=== PATIENT | female | born 1960 | race American Indian/Alaskan Native ===

== ENCOUNTER 2016-06-06 09:46 | Emergency (ER) | payer OTHER ==
--- NOTE | 2016-06-06 10:32 | EDM.PDOC ---
ED HISTORY OF PRESENT ILLNESS - General Chief Complaint: Respiratory Problem Stated Complaint: BY AMBULANCE Time Seen by Provider: 06/06/16 10:30 Source of Information: Reports: Patient, EMS, Old records, RN, RN notes reviewed History Limitations: Reports: No limitations - History of Present Illness INITIAL COMMENTS - FREE TEXT/NARRATIVE: Arrives by ambulance sent from [facility] by Dr. Newton with c/o cough , wheezing, and worsening shortness of breath. Timing/Duration: Reports: Constant, Getting worse Severity: severe Location, General: Reports: chest Improves with: Reports: None Worsens with: Reports: None Associated Symptoms (General): Reports: no other symptoms Treatments SYSTEM TRAINER: Reports: Breathing treatments, Other medication(s) - Related Data Allergies/ADRs: Allergies Allergy/AdvReac Type Severity Reaction Status Date / Time No Known Allergies Allergy Verified 07/22/13 09:28 Home Meds: Home Meds Omeprazole [Omeprazole] 20 mg PO DAILY 05/28/16 [History] Pregabalin [Lyrica] 50 mg PO DAILY 05/28/16 [History] atorvaSTATin [Lipitor] 10 mg PO DAILY 05/28/16 [History] glyBURIDE [Glyburide] 5 mg PO BID 05/28/16 [History] metFORMIN HCl [Metformin HCl] 1,000 mg PO BID 05/28/16 [History] traMADol [Ultram] 50 mg PO ASDIRECTED PRN 05/28/16 [History] Albuterol/Ipratropium [DuoNeb 3.0-0.5 MG/3 ML] 3 ml NEB ASDIRECTED PRN 06/06/16 [History] Amoxicillin 500 mg PO BID 06/06/16 [History] Codeine/Promethazine [Phenergan with Codeine] 5 ml PO ASDIRECTED PRN 06/06/16 [ History] Past Medical History Cardiovascular History: Reports: Hypertension Respiratory History: Reports: COPD Gastrointestinal History: Reports: GERD Neurological History: Reports: Neuropathy, diabetic Endocrine/Metabolic History: Reports: Diabetes, type II Social & Family History - Family History Family Medical History: Noncontributory - Tobacco Use Smoking Status *Q: Current Every Day Smoker Tobacco Use Within Last Twelve Months: Cigarettes Years of Tobacco use: 30 Packs/Tins Daily: 0.5 Second Hand Smoke Exposure: Yes - Caffeine Use Caffeine Use: Reports: Coffee, Soda - Living Situation & Occupation Living situation: Reports: with family ED ROS GENERAL - Review of Systems Review Of Systems: ROS reveals no pertinent complaints other than HPI. ED EXAM, GENERAL - Physical Exam Exam: See Below Exam Limited By: No limitations General Appearance: alert, anxious, mild distress (respiratory), obese, other ( acute ill appearing. ) Eye Exam: bilateral eye: normal inspection Ears: normal external exam, normal canal, hearing grossly normal, normal TMs Nose: normal inspection, normal mucosa, no blood Throat/Mouth: Other (white plaques on oral membranes. Tongue and pharynx consistent with thrush.) Head: atraumatic, normocephalic Neck: normal inspection, supple, non-tender, full range of motion Respiratory/Chest: other (decreased sounds bilateral lower lung bradford with course crackles and wheezes throught bilateral.) Cardiovascular: normal peripheral pulses, regular rate, rhythm, no edema, no gallop, no JVD, no murmur, no rub GI/Abdominal: other (obese, benign abdomen.) Back Exam: normal inspection, full range of motion, NT Extremities: normal inspection, normal range of motion, non-tender, normal capillary refill, no pedal edema Neurological: alert, oriented, CN II-XII intact, normal cognition, normal gait, normal reflexes, no motor/sensory deficits Psychiatric: normal affect, normal mood Skin Exam: Warm, Dry, Intact, Normal color, No rash Course - Vital Signs Last Recorded V/S: Last Vital Signs Temp 36.2 C 06/06/16 12:52 Pulse 91 06/06/16 13:43 Resp 24 H 06/06/16 12:52 BP 114/67 06/06/16 12:56 Pulse Ox 92 L 06/06/16 12:52 - Orders/Labs/Meds Orders: Active Orders 24 hr Category Date Time Status Overnight Pulse Oximetry [RC] Click To Edit Care 06/06/16 11:06 Active Peripheral IV Care [RC] . DIRECTED Care 06/06/16 11:06 Active RT Aerosol Therapy [RC] ASDIRECTED Care 06/06/16 11:05 Active RT Aerosol Therapy [RC] ASDIRECTED Care 06/06/16 13:30 Active CULTURE BLOOD [BC] Stat Lab 06/06/16 11:16 Received CULTURE BLOOD [BC] Stat Lab 06/06/16 11:22 Received CULTURE STREP A CONFIRMATION [] Stat Lab 06/06/16 11:19 Results STREP SCRN A RAPID W CULT CONF [] Stat Lab 06/06/16 11:19 Results Blood Culture x2 Reflex Set [OM.PC] Stat Oth 06/06/16 11:06 Ordered Peripheral IV Insertion Adult [OM.PC] Stat Ot 06/06/16 11:06 Ordered Pulse Oximetry Continuous Monitoring [OM.PC] Routine Ot 06/06/16 11:06 Ordered RT Supplemental Oxygen Titration [RESPCARE] Stat Ot 06/06/16 11:06 Active Labs: Laboratory Tests 06/06/16 06/06/16 06/06/16 Range/Units 11:16 11:16 11:16 WBC 8.9 (5.0-10.0) 10^3/uL RBC 4.04 L (4.2-5.4) 10^6/uL Hgb 10.6 L (12.0-16.0) g/dL Hct 33.6 L (37.0-47.0) % MCV 83.2 (80-100) fL MCH 26.2 L (27.0-34.0) pg MCHC 31.5 L (33.0-35.0) g/dL Plt Count 184 (150-450) 10^3/uL Neut % (Auto) 81.3 H (42.2-75.2) % Lymph % (Auto) 9.1 L (20.5-50.1) % Morgan % (Auto) 8.7 H (2-8) % Eos % (Auto) 0.8 L (1.0-3.0) % Baso % (Auto) 0.1 (0.0-1.0) % D-Dimer, Quantitative 1240 H (0-400) ng/mL Sodium 135 (135-145) mmol/L Potassium 3.6 (3.6-5.0) mmol/L Chloride 97 L (101-111) mmol/L Carbon Dioxide 28.0 (21.0-31.0) mmol/L Anion Gap 13.6 BUN 12 (7-18) mg/dL Creatinine 0.5 L (0.6-1.3) mg/dL Est Cr Clr Drug Dosing TNP Estimated GFR (MDRD) > 60 BUN/Creatinine Ratio 24.00 Glucose 122 H (74-105) mg/dL Lactic Acid (0.5-2.2) mmol/L Calcium 8.5 (8.4-10.2) mg/dl Total Bilirubin 0.8 (0.2-1.0) mg/dL AST 47 H (10-42) IU/L ALT 28 (10-60) IU/L Alkaline Phosphatase 121 (42-121) IU/L C-Reactive Protein (0.0-1.3) mg/dL B-Natriuretic Peptide 114 H (0-100) pg/ml Total Protein 7.1 (6.7-8.2) g/dl Albumin 2.5 L (3.2-5.5) g/dl Globulin 4.6 Albumin/Globulin Ratio 0.54 Urine Color (YELLOW) Urine Appearance (CLEAR) Urine pH (5.0-9.0) Ur Specific [place] (1.005-1.030) Urine Protein (NEGATIVE) Urine Glucose (UA) (NEGATIVE) Urine Ketones (NEGATIVE) Urine Occult Blood (NEGATIVE) Urine Nitrite (NEGATIVE) Urine Bilirubin (NEGATIVE) Urine Urobilinogen (0.2-1.0) mg/dL Ur Leukocyte Esterase (NEGATIVE) Urine RBC /HPF Urine WBC (0-5/HPF) /HPF Ur Epithelial Cells /HPF Amorphous Sediment (0/HPF) /HPF Urine Bacteria (0-FEW/HPF) /HPF 06/06/16 06/06/16 06/06/16 Range/Units 11:16 11:16 11:35 WBC (5.0-10.0) 10^3/uL RBC (4.2-5.4) 10^6/uL Hgb (12.0-16.0) g/dL Hct (37.0-47.0) % MCV (80-100) fL MCH (27.0-34.0) pg MCHC (33.0-35.0) g/dL Plt Count (150-450) 10^3/uL Neut % (Auto) (42.2-75.2) % Lymph % (Auto) (20.5-50.1) % Morgan % (Auto) (2-8) % Eos % (Auto) (1.0-3.0) % Baso % (Auto) (0.0-1.0) % D-Dimer, Quantitative (0-400) ng/mL Sodium (135-145) mmol/L Potassium (3.6-5.0) mmol/L Chloride (101-111) mmol/L Carbon Dioxide (21.0-31.0) mmol/L Anion Gap BUN (7-18) mg/dL Creatinine (0.6-1.3) mg/dL Est Cr Clr Drug Dosing Estimated GFR (MDRD) BUN/Creatinine Ratio Glucose (74-105) mg/dL Lactic Acid 2.6 H (0.5-2.2) mmol/L Calcium (8.4-10.2) mg/dl Total Bilirubin (0.2-1.0) mg/dL AST (10-42) IU/L ALT (10-60) IU/L Alkaline Phosphatase (42-121) IU/L C-Reactive Protein 17.9 H (0.0-1.3) mg/dL B-Natriuretic Peptide (0-100) pg/ml Total Protein (6.7-8.2) g/dl Albumin (3.2-5.5) g/dl Globulin Albumin/Globulin Ratio Urine Color Yellow (YELLOW) Urine Appearance Slightly cloudy (CLEAR) Urine pH 6.0 (5.0-9.0) Ur Specific [place] 1.015 (1.005-1.030) Urine Protein 30 H (NEGATIVE) Urine Glucose (UA) Negative (NEGATIVE) Urine Ketones Negative (NEGATIVE) Urine Occult Blood Negative (NEGATIVE) Urine Nitrite Negative (NEGATIVE) Urine Bilirubin Small H (NEGATIVE) Urine Urobilinogen 2.0 H (0.2-1.0) mg/dL Ur Leukocyte Esterase Negative (NEGATIVE) Urine RBC 0-5 /HPF Urine WBC 0-5 (0-5/HPF) /HPF Ur Epithelial Cells Many H /HPF Amorphous Sediment Few (0/HPF) /HPF Urine Bacteria Rare (0-FEW/HPF) /HPF Meds: Medications Discontinued Medications Generic Name Dose Route Start Last Admin Trade Name Freq PRN Reason Stop Dose Admin Albuterol/Ipratropium 3 ml 06/06/16 11:05 06/06/16 11:42 Duoneb 3.0-0.5 Mg/3 Ml NEB 06/06/16 11:06 3 ml ONETIME ONE Administration Albuterol/Ipratropium 3 ml 06/06/16 13:30 06/06/16 13:40 Duoneb 3.0-0.5 Mg/3 Ml NEB 06/06/16 13:31 3 ml ONETIME ONE Administration Benzonatate 200 mg 06/06/16 13:30 06/06/16 13:39 Tessalon Perles PO 06/06/16 13:31 200 mg ONETIME ONE Administration Fluconazole 200 mg 06/07/16 11:09 Diflucan PO 06/07/16 11:10 ONETIME ONE Fluconazole 200 mg 06/06/16 11:09 06/06/16 12:06 Diflucan PO 06/06/16 11:10 200 mg ONETIME ONE Administration Sodium Chloride 1,000 mls @ 999 mls/hr 06/06/16 11:05 06/06/16 11:25 Normal Saline IV 06/06/16 12:05 999 mls/hr .BOLUS ONE Administration Iopamidol 100 ml 06/06/16 12:03 06/06/16 12:41 Isovue-370 (76%) IVPUSH 06/06/16 12:04 78 ml ONETIME ONE Administration Methylprednisolone Sodium Succinate 125 mg 06/06/16 11:05 06/06/16 11:28 Solu-Medrol IVPUSH 06/06/16 11:06 125 mg ONETIME ONE Administration Promethazine HCl/Codeine 10 ml 06/06/16 11:07 06/06/16 11:23 Phenergan With Codeine PO 06/06/16 11:08 10 ml ONETIME ONE Administration Sodium Chloride 10 ml 06/06/16 11:06 06/06/16 11:29 Saline Flush FLUSH 10 ml ASDIRECTED PRN Administration Keep Vein Open - Radiology Interpretation Free Text/Narrative:: CT chest: Per rad report shows extensive abormal alveolar consolidation, bilaterally. See rad report. Departure - Departure Time of Disposition: 14:05 Disposition: DC/Tfer to Acute Hospital 02 Condition: serious Clinical Impression: Alveolar pneumopathy, COPD with acute exacerbation, Tobacco abuse Acute respiratory failure Qualifiers: Respiratory failure complication: hypoxia Qualified Code(s): J96.01 - Acute respiratory failure with hypoxia Referrals: PCP,Unobtain [Primary Care Provider] - Forms: ED Department Discharge, Interfacility Transfer EMTALA - My Orders Last 24 Hours: My Active Orders 06/06/16 11:05 RT Aerosol Therapy [RC] ASDIRECTED 06/06/16 11:06 Overnight Pulse Oximetry [RC] Click To Edit Peripheral IV Care [RC] . DIRECTED Blood Culture x2 Reflex Set [OM.PC] Stat Peripheral IV Insertion Adult [OM.PC] Stat Pulse Oximetry Continuous Monitoring [OM.PC] Routine RT Supplemental Oxygen Titration [RESPCARE] Stat 06/06/16 11:16 CULTURE BLOOD [BC] Stat 06/06/16 11:19 CULTURE STREP A CONFIRMATION [RM] Stat STREP SCRN A RAPID W CULT CONF [RM] Stat 06/06/16 11:22 CULTURE BLOOD [BC] Stat 06/06/16 13:30 RT Aerosol Therapy [RC] ASDIRECTED - Assessment/Plan Last 24 Hours: My Active Orders 06/06/16 11:05 RT Aerosol Therapy [RC] ASDIRECTED 06/06/16 11:06 Overnight Pulse Oximetry [RC] Click To Edit Peripheral IV Care [RC] . DIRECTED Blood Culture x2 Reflex Set [OM.PC] Stat Peripheral IV Insertion Adult [OM.PC] Stat Pulse Oximetry Continuous Monitoring [OM.PC] Routine RT Supplemental Oxygen Titration [RESPCARE] Stat 06/06/16 11:16 CULTURE BLOOD [BC] Stat 06/06/16 11:19 CULTURE STREP A CONFIRMATION [RM] Stat STREP SCRN A RAPID W CULT CONF [RM] Stat 06/06/16 11:22 CULTURE BLOOD [BC] Stat 06/06/16 13:30 RT Aerosol Therapy [RC] ASDIRECTED
[2016-06-06] MEDS ORDERED: Albuterol/Ipratropium 3.0-0.5 MG/3 ML Neb Soln NEB ONE ×2 (11:05→13:30)
[2016-06-06] MEDS ORDERED: Sodium Chloride 0.9% 1,000 ML IV ONE (11:05)
[2016-06-06] MEDS ORDERED: methylPREDNISolone Sodium Succinate 125 MG/2 ML SDV IVPUSH ONE (11:05)
[2016-06-06] MEDS ORDERED: Sodium Chloride 0.9% 10 ML Syringe FLUSH PRN (11:06)
[2016-06-06] MEDS ORDERED: Codeine/Promethazine 10-6.25 MG/5 ML Syrup 5 ML UD Cup PO ONE (11:07)
[2016-06-06] MEDS ORDERED: Fluconazole 100 MG Tab PO ONE (11:09)
[2016-06-06 11:51] LABS: CHLORIDE,CL 97 mmol/L (101-111); SODIUM,NA 135 mmol/L (135-145)
[2016-06-06] MEDS ORDERED: Iopamidol 755 Mg/ML 100 ML Bottle IVPUSH ONE (12:03)
[2016-06-06 12:56] VITALS: BP 114/67
[2016-06-06] MEDS ORDERED: Benzonatate 100 MG Cap PO ONE (13:30)
--- NOTE | 2016-06-06 13:50 | CT ---
CLINICAL HISTORY: 55-year-old hypertensive 224 pound diabetic female smoker with cough and dyspnea ( serum D dimer greater than 1200). Patient with abnormally low O2 saturation has a WBC only 8900 but the CRP equals 17.9 (normal less than 1). SCAN TECHNIQUE: Volume acquisition of data from the thorax obtained the during intravenous (5 cc/s) administration 78 ml Isovue-370 contrast while the patient was lying supine on the Siemens multislic e CT scanner [place], [place]. All data archived in the PACS system f or storage, reformatting and study. INTERPRETATION: Markedly abnormal. 1. *Extensive, dense alveolar consolidation, both lung bradford which may reflect bilateral multilobar pneumonia or even noncardiogenic pulmonary edema; however, no sign of intraluminal filling defects or thrombus identified within the pulmonary artery circulation, i.e., low probability PE. 2. Normal cardiac silhouette without cephalization of vascular flow or dependent pleural effusion. No pericardial effusions. Normal caliber thoracic aorta. 3. Scattered peripheral pleural-based atelectasis/infiltrate (infarcts?), bilaterally. Generally les s than optimal respiratory effort but no atelectasis or collapse. No pneumothorax. 4. No parenchymal lung nodule or mass lesion. No hilar or mediastinal lymphadenopathy. 5. Multilevel disc disease and chronic hypertrophic arthritic changes kyphotic dorsal spine. Multipl e old healed rib and left clavicular fractures. 6. Fatty liver. Gallbladder, spleen, pancreas and adrenal glands unremarkable. CONCLUSION: Extensive abnormal alveolar consolidation, bilaterally. (See above) Differential considerations for this abnormal radiographic appearance include opportunistic pneumoni as; drug overdose and/or fluid overload; Aspiration pneumonia; lymphoma; acute glomerulonephritis; n oncardiogenic pulmonary edema; lung contusion; alveolar proteinosis; pulmonary hemorrhage.
[2016-06-07] MEDS ORDERED: Fluconazole 100 MG Tab PO ONE (11:09)
== END 2016-06-06 14:05 ==
LOC: DL.ED 09:46
DX: J96.01 Acute respiratory failure with hypoxia (principal); J44.1 Chronic obstructive pulmonary disease with (acute) exacerbation; J84.09 Other alveolar and parieto-alveolar conditions; I10 Essential (primary) hypertension; K21.9 Gastro-esophageal reflux disease without esophagitis; E11.40 Type 2 diabetes mellitus with diabetic neuropathy, unspecified; F17.210 Nicotine dependence, cigarettes, uncomplicated; Z79.84 Long term (current) use of oral hypoglycemic drugs; Z79.899 Other long term (current) drug therapy
CPT/HCPCS: 36415; 71260; 80053; 81001; 83605; 83880; 85025; 85379; 86140; 87040; 87081; 87430; 87804; 94640; 96361; 96374; 99285; A9270; J2930; J7030; J7050; Q9967

== ENCOUNTER 2016-09-04 17:34 | Emergency (ER) | payer OTHER | END 2016-09-04 18:30 | disposition left against medical advice (07) | LOC: DL.ED 17:34 | DX: Z53.21 Procedure and treatment not carried out due to patient leaving prior to being seen by health care provider (principal) | CPT/HCPCS: 99281 ==

== ENCOUNTER 2019-10-28 14:55 | Emergency (ER) | payer BC, OTHER ==
[2019-10-28] MEDS ORDERED: Sodium Chloride 0.9% 1,000 ML IV ONE (15:06)
[2019-10-28 15:28] VITALS: BP 143/71; PULSE 101
[2019-10-28 15:46] LABS: CHLORIDE,CL 95 mmol/L (98-107); SODIUM,NA 131 mmol/L (136-145)
--- NOTE | 2019-10-28 16:14 | EDM.PDOC ---
ED HPI GENERAL MEDICAL PROBLEM - General Stated Complaint: AMBULANCE Time Seen by Provider: 10/28/19 15:55 Source of Information: Reports: Patient History Limitations: Reports: No Limitations - History of Present Illness INITIAL COMMENTS - FREE TEXT/NARRATIVE: This 59 yo female patient was brought to the ED by [facility] due to nausea/vomiting, a cough and a fever (last night). The patient reports she has been diagnosed with COVID (results were received last Monday). The patient reports she did have a fever last night, but no fever today. The patient reports a home health nurse advised her to call the ambulance today to be seen in the ED. The patient reports she currently feels "pretty normal". Onset Date: 10/27/19 Duration: Resolved Prior to Arrival Location: Reports: Chest, Abdomen Quality: Reports: Other Severity: Moderate Improves with: Reports: None Worsens with: Reports: None Context: Reports: Other Associated Symptoms: Reports: Fever/Chills, Nausea/Vomiting Treatments FORM BLOCK MAKER: Denies: Acetaminophen, NSAIDS - Related Data Allergies Allergy/AdvReac Type Severity Reaction Status Date / Time No Known Allergies Allergy Verified 07/22/13 09:28 Home Meds: Home Meds Omeprazole 20 mg PO DAILY 05/28/16 [History] Pregabalin [Lyrica] 50 mg PO DAILY 05/28/16 [History] atorvaSTATin [Lipitor] 10 mg PO DAILY 05/28/16 [History] glyBURIDE [Glyburide] 5 mg PO BID 05/28/16 [History] metFORMIN HCl [Metformin HCl] 1,000 mg PO BID 05/28/16 [History] traMADol [Ultram] 50 mg PO ASDIRECTED PRN 05/28/16 [History] Albuterol/Ipratropium [DuoNeb 3.0-0.5 MG/3 ML] 3 ml NEB ASDIRECTED PRN 06/06/16 [History] Amoxicillin 500 mg PO BID 06/06/16 [History] Codeine/Promethazine [Phenergan with Codeine] 5 ml PO ASDIRECTED PRN 06/06/16 [History] Past Medical History Cardiovascular History: Reports: Hypertension Respiratory History: Reports: COPD Other Respiratory History: pneumonia Gastrointestinal History: Reports: GERD Neurological History: Reports: Neuropathy, Diabetic Psychiatric History: Reports: Anxiety Endocrine/Metabolic History: Reports: Diabetes, Type II Social & Family History - Family History Family Medical History: Noncontributory - Caffeine Use Caffeine Use: Reports: Coffee, Soda - Living Situation & Occupation Living situation: Reports: with Family ED ROS GENERAL - Review of Systems Review Of Systems: Comprehensive ROS is negative, except as noted in HPI. ED EXAM, GI/ABD - Physical Exam Exam: See Below Exam Limited By: No Limitations General Appearance: Alert, WD/WN, No Apparent Distress Eyes: Bilateral: Normal Appearance, EOMI Ears: Normal External Exam, Normal Canal, Hearing Grossly Normal, Normal TMs Nose: Normal Inspection, Normal Mucosa, No Blood Throat/Mouth: Normal Inspection, Normal Lips, Normal Teeth, Normal Gums, Normal Oropharynx, Normal Voice, No Airway Compromise Head: Atraumatic, Normocephalic Neck: Normal Inspection, Supple, Non-Tender, Full Range of Motion Respiratory/Chest: No Respiratory Distress, No Accessory Muscle Use, Chest Non-Tender, Decreased Breath Sounds (diffuse). No: Rhonchi Cardiovascular: Normal Peripheral Pulses, Regular Rate, Rhythm, No Edema, No Gallop, No JVD, No Murmur, No Rub GI/Abdominal Exam: Normal Bowel Sounds, Soft, Non-Tender, No Organomegaly, No Distention, No Abnormal Bruit, No Mass, Pelvis Stable, Other (obese) (Female) Exam: Deferred Rectal (Female) Exam: Deferred Back Exam: Normal Inspection, Full Range of Motion, NT Extremities: Normal Inspection, Normal Range of Motion, Non-Tender, Normal Capillary Refill, No Pedal Edema Neurological: Alert, Oriented, CN II-XII Intact, Normal Cognition, Normal Gait, Normal Reflexes, No Motor/Sensory Deficits Psychiatric: Normal Affect, Normal Mood Skin Exam: Warm, Dry, Intact, Normal Color, No Rash Lymphatic: No Adenopathy Course - Vital Signs Last Recorded V/S: Last Vital Signs Temp 37.7 C 10/28/19 15:27 Pulse 101 H 10/28/19 15:27 Resp 23 H 10/28/19 15:27 BP 143/71 H 10/28/19 15:27 Pulse Ox 98 10/28/19 15:27 - Orders/Labs/Meds Orders: Active Orders 24 hr Category Date Time Status CULTURE BLOOD [BC] Stat Lab 10/28/19 15:08 Ordered Labs: Laboratory Tests 10/28/19 10/28/19 10/28/19 Range/Units 15:15 15:15 15:15 WBC 2.1 L (5.0-10.0) 10^3/uL RBC 4.70 (4.2-5.4) 10^6/uL Hgb 11.5 L (12.0-16.0) g/dL Hct 36.0 L (37.0-47.0) % MCV 76.6 L D (80-100) fL MCH 24.5 L (27.0-34.0) pg MCHC 31.9 L (33.0-35.0) g/dL Plt Count 94 L D (150-450) 10^3/uL Neut % (Auto) 56.5 (42.2-75.2) % Lymph % (Auto) 23.2 (20.5-50.1) % [place] % (Auto) 19.8 H (2-8) % Eos % (Auto) 0.0 L (1.0-3.0) % Baso % (Auto) 0.5 (0.0-1.0) % Sodium 131 L (136-145) mmol/L Potassium 4.0 (3.5-5.1) mmol/L Chloride 95 L (98-107) mmol/L Carbon Dioxide 30 (21-32) mmol/L Anion Gap 10.0 (7-13) mEq/L BUN 8 (7-18) mg/dL Creatinine 0.72 (0.55-1.02) mg/dL Est Cr Clr Drug Dosing TNP Estimated GFR (MDRD) > 60 BUN/Creatinine Ratio 11.1 (No establ ref range) Glucose 162 H (74-99) mg/dL Lactic Acid 3.2 H* (0.4-2.0) mmol/L Calcium 7.8 L (8.5-10.1) mg/dL Total Bilirubin 1.0 (0.2-1.0) mg/dL AST 316 H (15-37) U/L ALT 94 H (14-59) U/L Alkaline Phosphatase 232 H (46-116) U/L Total Protein 7.4 (6.4-8.2) g/dL Albumin 2.3 L (3.4-5.0) g/dL Globulin 5.1 Albumin/Globulin Ratio 0.45 Amylase 27 (25-115) U/L Lipase 227 (73-393) U/L Meds: Medications Discontinued Medications Generic Name Dose Route Start Last Admin Trade Name Raquel PRN Reason Stop Dose Admin Sodium Chloride 1,000 mls @ 999 mls/hr 10/28/19 15:06 10/28/19 15:20 Normal Saline IV 10/28/19 16:06 999 mls/hr .BOLUS ONE Administration Departure - Departure Time of Disposition: 16:59 Disposition: Home, Self-Care 01 Condition: Fair Clinical Impression: COVID-19 Nausea & vomiting Qualifiers: Vomiting type: unspecified Vomiting Intractability: non-intractable Qualified Code(s): R11.2 - Nausea with vomiting, unspecified Fever Qualifiers: Fever type: due to other condition Qualified Code(s): R50.81 - Fever presenting with conditions classified elsewhere - Discharge Information *PRESCRIPTION DRUG MONITORING PROGRAM REVIEWED*: Not Applicable *COPY OF PRESCRIPTION DRUG MONITORING REPORT IN PATIENT GRABIEL: Not Applicable Instructions: COVID-19: How to Protect Yourself and Others - CDC, Nausea and Vomiting, Adult, [id number], Fever, Adult, [id number] Forms: ED Department Discharge Care Plan Goals: The patient was advised of the examination and lab results during the visit. The patient was given a liter of IV fluid during the visit. The patient was discharged with a script for Zofran (4 mg) #20 to take 1 by mouth every 6 hours as needed for nausea. The patient was encouraged to increase her oral fluid intake. The patient was encouraged to take Tylenol or ibuprofen as directed. If the patient has any additional symptoms or concerns, the patient should either return to the emergency department or visit her primary care facility. Sepsis Event Note (ED) - Evaluation Sepsis Screening Result: No Definite Risk - Focused Exam Vital Signs: Vital Signs Temp Pulse Resp BP Pulse Ox 10/28/19 15:27 37.7 C 101 H 23 H 143/71 H 98 - My Orders Last 24 Hours: My Active Orders 10/28/19 15:08 CULTURE BLOOD [BC] Stat - Assessment/Plan Last 24 Hours: My Active Orders 10/28/19 15:08 CULTURE BLOOD [BC] Stat
== END 2019-10-28 17:55 | disposition home or self-care (01) ==
LOC: DL.ED 14:55
DX: U07.1 COVID-19 (principal); R11.2 Nausea with vomiting, unspecified; E11.40 Type 2 diabetes mellitus with diabetic neuropathy, unspecified; I10 Essential (primary) hypertension; K21.9 Gastro-esophageal reflux disease without esophagitis; Z79.84 Long term (current) use of oral hypoglycemic drugs; Z79.899 Other long term (current) drug therapy
CPT/HCPCS: 36415; 80053; 82150; 83605; 83690; 85025; 87040; 96360; 99284; J7030; 99283

== ENCOUNTER 2019-11-03 02:11 | Emergency (ER) | payer BC, OTHER ==
[2019-11-03] MEDS ORDERED: Dexamethasone 4 MG/ML SDV IVPUSH ONE (02:17)
[2019-11-03 02:19] VITALS: BP 120/57
--- NOTE | 2019-11-03 02:27 | EDM.PDOC ---
ED HPI GENERAL MEDICAL PROBLEM - General Chief Complaint: Respiratory Problem Stated Complaint: AMBULANCE Time Seen by Provider: 11/03/19 02:15 Source of Information: Reports: Patient History Limitations: Reports: No Limitations - History of Present Illness INITIAL COMMENTS - FREE TEXT/NARRATIVE: This 59 yo female patient was brought to the ED due to increased shortness of breath. The patient reports her shortness of breath started tonight. The patient was diagnosed with COVID on 10/22/19. The patient was seen in the ED for nausea on 10/28/19 and was started on Zofran with symptom improvement. EMS reports the patient's oxygen saturation was 76% upon arrival at the scene. The patient was placed on a non-rebreather mask at 15 lpm which increased her oxygen saturation to 95%. The patient continues to report difficulties breathing. Onset: Today Duration: Constant Location: Reports: Chest Quality: Reports: Other Severity: Severe Improves with: Reports: Medication (Oxygen provided by EMS) Worsens with: Reports: None Context: Reports: Other Associated Symptoms: Reports: Chest Pain, Shortness of Breath - Related Data Allergies Allergy/AdvReac Type Severity Reaction Status Date / Time No Known Allergies Allergy Verified 11/03/19 02:33 Home Meds: Home Meds Omeprazole 20 mg PO DAILY 05/28/16 [History] Pregabalin [Lyrica] 50 mg PO DAILY 05/28/16 [History] atorvaSTATin [Lipitor] 10 mg PO DAILY 05/28/16 [History] glyBURIDE [Glyburide] 5 mg PO BID 05/28/16 [History] metFORMIN HCl [Metformin HCl] 1,000 mg PO BID 05/28/16 [History] traMADol [Ultram] 50 mg PO ASDIRECTED PRN 05/28/16 [History] Albuterol/Ipratropium [DuoNeb 3.0-0.5 MG/3 ML] 3 ml NEB ASDIRECTED PRN 06/06/16 [History] Amoxicillin 500 mg PO BID 06/06/16 [History] Codeine/Promethazine [Phenergan with Codeine] 5 ml PO ASDIRECTED PRN 06/06/16 [History] Past Medical History Cardiovascular History: Reports: Hypertension Respiratory History: Reports: COPD Other Respiratory History: pneumonia Gastrointestinal History: Reports: GERD Neurological History: Reports: Neuropathy, Diabetic Psychiatric History: Reports: Anxiety Endocrine/Metabolic History: Reports: Diabetes, Type II Social & Family History - Family History Family Medical History: Noncontributory - Caffeine Use Caffeine Use: Reports: Coffee, Soda - Living Situation & Occupation Living situation: Reports: with Family ED ROS GENERAL - Review of Systems Review Of Systems: Comprehensive ROS is negative, except as noted in HPI. ED EXAM, GENERAL - Physical Exam Exam: See Below Exam Limited By: No Limitations General Appearance: Alert, WD/WN, Moderate Distress, Obese Eye Exam: Bilateral Eye: EOMI, Normal Inspection, PERRL Ears: Normal External Exam, Normal Canal, Hearing Grossly Normal, Normal TMs Nose: Normal Inspection, Normal Mucosa, No Blood Throat/Mouth: Normal Inspection, Normal Lips, Normal Teeth, Normal Gums, Normal Oropharynx, Normal Voice, No Airway Compromise Head: Atraumatic, Normocephalic Neck: Normal Inspection, Supple, Non-Tender, Full Range of Motion Respiratory/Chest: Decreased Breath Sounds, Rhonchi (diffuse) Cardiovascular: No Edema, No Gallop, No JVD, No Murmur, No Rub, Tachycardia GI/Abdominal: Normal Bowel Sounds, Soft, Non-Tender, No Organomegaly, No Distention, No Abnormal Bruit, No Mass, Other (obese) Rectal (Female) Exam: Deferred Back Exam: Normal Inspection, Full Range of Motion, NT Extremities: Normal Inspection, Normal Range of Motion, Non-Tender, Normal Capillary Refill, No Pedal Edema Neurological: Alert, Oriented, CN II-XII Intact, Normal Cognition, Normal Gait, Normal Reflexes, No Motor/Sensory Deficits Psychiatric: Normal Affect, Normal Mood Skin Exam: Warm, Dry, Intact, Normal Color, No Rash Lymphatic: No Adenopathy Course - Vital Signs Last Recorded V/S: Last Vital Signs Temp 36.6 C 11/03/19 02:14 Pulse 102 H 11/03/19 03:23 Resp 22 H 11/03/19 02:14 BP 120/57 L 11/03/19 02:14 Pulse Ox 87 L 11/03/19 03:23 - Orders/Labs/Meds Orders: Active Orders 24 hr Category Date Time Status EKG Documentation Completion [RC] STAT Care 11/03/19 02:15 Active RT Aerosol Therapy [RC] ASDIRECTED Care 11/03/19 03:03 Ordered ABG [BLOOD GAS ARTERIAL] [BG] Stat Lab 11/03/19 03:39 Ordered REFLEX LACTIC ACID YES OR NO [CHEM] Routine Lab 11/03/19 02:58 Received Labs: Laboratory Tests 11/03/19 11/03/19 11/03/19 Range/Units 02:26 02:26 02:26 WBC 6.8 (5.0-10.0) 10^3/uL RBC 4.47 (4.2-5.4) 10^6/uL Hgb 11.0 L (12.0-16.0) g/dL Hct 34.9 L (37.0-47.0) % MCV 78.1 L (80-100) fL MCH 24.6 L (27.0-34.0) pg MCHC 31.5 L (33.0-35.0) g/dL Plt Count 137 L (150-450) 10^3/uL Neut % (Auto) 80.0 H (42.2-75.2) % Lymph % (Auto) 10.1 L (20.5-50.1) % [place] % (Auto) 9.2 H (2-8) % Eos % (Auto) 0.6 L (1.0-3.0) % Baso % (Auto) 0.1 (0.0-1.0) % Sodium 130 L (136-145) mmol/L Potassium 3.2 L (3.5-5.1) mmol/L Chloride 93 L (98-107) mmol/L Carbon Dioxide 22 (21-32) mmol/L Anion Gap 18.2 H (7-13) mEq/L BUN 9 (7-18) mg/dL Creatinine 0.96 (0.55-1.02) mg/dL Est Cr Clr Drug Dosing 59.07 mL/min Estimated GFR (MDRD) 59 BUN/Creatinine Ratio 9.4 (No establ ref range) Glucose 256 H (74-99) mg/dL Lactic Acid 8.6 H* (0.4-2.0) mmol/L Calcium 8.1 L (8.5-10.1) mg/dL Total Bilirubin 1.5 H (0.2-1.0) mg/dL AST 89 H (15-37) U/L ALT 38 (14-59) U/L Alkaline Phosphatase 234 H (46-116) U/L Troponin I < 0.017 (0.000-0.056) ng/mL Total Protein 7.0 (6.4-8.2) g/dL Albumin 1.9 L (3.4-5.0) g/dL Globulin 5.1 Albumin/Globulin Ratio 0.37 Meds: Medications Discontinued Medications Generic Name Dose Route Start Last Admin Trade Name Freq PRN Reason Stop Dose Admin Albuterol 2.5 mg 11/03/19 03:03 11/03/19 03:18 Proventil Neb Soln NEB 11/03/19 03:04 2.5 mg ONETIME ONE Administration Dexamethasone 6 mg 11/03/19 02:17 11/03/19 02:27 Dexamethasone IVPUSH 11/03/19 02:18 6 mg ONETIME ONE Administration Departure - Departure Time of Disposition: 04:30 Disposition: DC/Tfer to [facility] 02 Condition: Serious Clinical Impression: COVID-19, Respiratory distress, Hypoxemia - Discharge Information *PRESCRIPTION DRUG MONITORING PROGRAM REVIEWED*: Not Applicable *COPY OF PRESCRIPTION DRUG MONITORING REPORT IN PATIENT GRABIEL: Not Applicable Forms: Interfacility Transfer EMTALA Care Plan Goals: Discussed the patient's history, examination, lab, EKG and CT results with Dr. Vizcaino ([facility]). Dr. Vizcaino accepted the patient for continued evaluation and management as an inpatient at [facility] (ICU room 264). The patient will be transported by [facility]. Sepsis Event Note (ED) - Evaluation Sepsis Screening Result: Possible Sepsis Risk - Focused Exam Vital Signs: Vital Signs Temp Pulse Resp BP Pulse Ox Pulse Ox 11/03/19 03:23 102 H 87 L 11/03/19 02:14 36.6 C 103 H 22 H 120/57 L 90 L - My Orders Last 24 Hours: My Active Orders 11/03/19 02:15 EKG Documentation Completion [RC] STAT 11/03/19 02:58 REFLEX LACTIC ACID YES OR NO [CHEM] Routine 11/03/19 03:03 RT Aerosol Therapy [RC] ASDIRECTED 11/03/19 03:39 ABG [BLOOD GAS ARTERIAL] [BG] Stat - Assessment/Plan Last 24 Hours: My Active Orders 11/03/19 02:15 EKG Documentation Completion [RC] STAT 11/03/19 02:58 REFLEX LACTIC ACID YES OR NO [CHEM] Routine 11/03/19 03:03 RT Aerosol Therapy [RC] ASDIRECTED 11/03/19 03:39 ABG [BLOOD GAS ARTERIAL] [BG] Stat
[2019-11-03 02:55] LABS: ANION GAP 18.2 mEq/L (7-13); CHLORIDE,CL 93 mmol/L (98-107); SODIUM,NA 130 mmol/L (136-145)
[2019-11-03] MEDS ORDERED: Albuterol 0.083% 2.5 MG/3 ML Neb Soln NEB ONE (03:03)
--- NOTE | 2019-11-03 03:05 | CT ---
PROCEDURE INFORMATION: Exam: CT Chest Without Contrast Exam date and time: 11/03/2019 2:46 AM Age: 59 years old Clinical indication: Cough and shortness of breath; Additional info: Covid with shortness of breath TECHNIQUE: Imaging protocol: Computed tomography of the chest without contrast. Radiation optimization: All CT scans at this facility use at least one of these dose optimization techniques: automated exposure control; mA and/or kV adjustment per patient size (includes targeted exams where dose is matched to clinical indication); or iterative reconstruction. COMPARISON: CT Chest w Cont 07/15/2016 9:51 AM FINDINGS: Lungs: Extensive bilateral upper and lower lung ground-glass infiltrates consistent with acute bilateral pneumonitis. Pleural space: Unremarkable. No pneumothorax. No pleural effusion. Heart: Unremarkable. No cardiomegaly. No pericardial effusion. Aorta: Unremarkable. No aortic aneurysm. Lymph nodes: Unremarkable. No enlarged lymph nodes. Bones/joints: Unremarkable. No acute fracture. Soft tissues: Unremarkable. IMPRESSION: 1. Extensive bilateral alveolar ground-glass infiltrates consistent with bilateral pneumonitis involving both upper and lower lungs. 2. Commonly reported imaging features of Covid 19 pneumonia are present. Other processes such is influenza pneumonia and organizing pneumonia as can be seen with drug toxicity and connective tissue disease, can cause a similar imaging pattern. Incidental note is made of diffuse gallbladder distension but no obvious gallstones.
[2019-11-03 03:28] VITALS: PULSE 102
[2019-11-03 03:53] LABS: BASE EXCESS ARTERIAL -1 mmol/L ((-2)-(+3)); BICARBONATE,ARTERIAL 22.4 mmol/L (22-26); O2 DELIVERY DEVICE PARTIAL REBREATHER; O2 SATURATION ARTERIAL 89 % (95-100); PCO2 ARTERIAL 32 mmHg (35-45); PO2 ARTERIAL 64 mmHg (70-100)
[2019-11-03 03:57] LABS: ALLEN TEST pos
== END 2019-11-03 04:43 ==
LOC: DL.ED 02:11
DX: U07.1 COVID-19 (principal); R06.03 Acute respiratory distress; R09.02 Hypoxemia; I10 Essential (primary) hypertension; K21.9 Gastro-esophageal reflux disease without esophagitis; E11.40 Type 2 diabetes mellitus with diabetic neuropathy, unspecified; Z79.899 Other long term (current) drug therapy; Z79.84 Long term (current) use of oral hypoglycemic drugs
CPT/HCPCS: 36415; 36600; 71250; 80053; 82803; 83605; 84484; 85025; 93005; 94640; 96374; 99285; J1100; 99284; J7613-GY